=== PATIENT | male | born 1975 | race Caucasian/White ===

== ENCOUNTER 2016-12-01 08:49 | Day surgery (SDC) | payer OTHER ==
[2016-12-01] MEDS ORDERED: IV START KIT ONE (09:58)
[2016-12-01] MEDS ORDERED: LACTATED RINGERS 1,000 ML ONE (09:58)
[2016-12-01] MEDS ORDERED: MIDAZOLAM HCL 5 MG/5 ML VIAL ONE (11:21)
[2016-12-01] MEDS ORDERED: LIDOCAINE Viscous 2% 15 ML UDCUP ONE (11:22)
[2016-12-01] MEDS ORDERED: FENTANYL 250 MCG/5 ML AMP ONE (11:22)
[2016-12-01] MEDS ORDERED: MIDAZOLAM HCL 1 MG/ML 2ML VIAL ONE (11:53)
[2016-12-01 16:52] LABS: HELICOBACTER PYLORII DETECTION NEGATIVE (NEGATIVE)
--- NOTE | 2016-12-03 14:40 | SURGPATH ---
[facility] [address] [place] [address] Patient Name: REBEKA MANZO MR#: [id number] : 1975 Gender: M Specimen #: [id number] Collected: 12/01/2016 Received: 12/02/2016 Reported: 12/03/2016 Submitting Phys: CLIFTON VEGA Copy To Phys: YVONNE GORMAN [facility] Clinical History / Pre-Operative Diagnosis: Diarrhea; periumbilical pain; tenesmus; rule out ileitis and colitis Specimen Source / Surgical Procedure Performed: #1-duodenal biopsy; #2-antral biopsy; #3-terminal ileum biopsy; #4-cecal biopsy; #5-sigmoid at 30 cm Interpretation: 1. DUODENUM, BIOPSY: - SMALL BOWEL MUCOSA WITH NO DIAGNOSTIC ABNORMALITY 2. STOMACH, ANTRUM, BIOPSY: - GASTRIC MUCOSA WITH NO DIAGNOSTIC ABNORMALITY 3. TERMINAL ILEUM, BIOPSY: - SMALL BOWEL MUCOSA WITH NO DIAGNOSTIC ABNORMALITY 4. CECUM, BIOPSY: - COLONIC MUCOSA WITH NO DIAGNOSTIC ABNORMALITY 5. SIGMOID COLON, 30 CM, BIOPSY: - COLONIC MUCOSA WITH NO DIAGNOSTIC ABNORMALITY Electronically Signed Out Mariel Park M.D. Gross Description: #1 The specimen is received in a formalin filled container labeled with the patient's name and "duodenal biopsy". Three bar[place] biopsies are 0.2, 0.3 and 0.4 cm. Totally embedded in cassette #1. #2 The specimen is received in a formalin filled container labeled with the patient's name and "antral biopsy". Two barahona biopsies are 0.3 and 0.4 cm. Totally embedded in cassette #2. #3 The specimen is received in a formalin filled container labeled with the patient's name and "terminal ileum biopsy". A single barahona biopsy is 0.4 cm. Totally embedded in cassette #3. #4 The specimen is received in a formalin filled container labeled with the patient's name and "cecal biopsy". Two barahona biopsies are 0.4 and 0.5 cm. Totally embedded in cassette #4. #5 The specimen is received in a formalin filled container labeled with the patient's name and "sigmoid at 30 cm". Two victor biopsies are 0.4 and 0.5 cm. Totally embedded in cassette #5. Xavier Clemens PSonyASony Microscopic Description: 1. Sections show fragments of small bowel mucosa with long and well preserved villous processes. There is no significant inflammation and lymphocytes are not increased within the epithelium. No infectious organisms are identified and there is no dysplasia. 2. Sections show fragments of gastric mucosa. There is normal mucosal architecture and no significant inflammation. No Helicobacter organisms are identified and there is no intestinal metaplasia or dysplasia. 3. Sections show fragments of small bowel mucosa with long and well preserved villous processes. There is no significant inflammation and lymphocytes are not increased within the epithelium. No infectious organisms are identified and there is no dysplasia. 4. Sections show fragments of colonic mucosa with normal mucosal architecture. There is no significant inflammation or signs of microscopic colitis. No infectious organisms are identified and there is no dysplasia. 5. Sections show fragments of colonic mucosa with normal mucosal architecture. There is no significant inflammation or signs of microscopic colitis. No infectious organisms are identified and there is no dysplasia. 1: 81016 2: 75005 3: 91963 4: 25950 5: 26675 R19.7
== END 2016-12-01 12:40 | disposition home or self-care (01) ==
LOC: SDC 08:49
PROVIDERS: ATTEND Internal Medicine Gastroenterology
PROC: 0DB98ZX Excision of Duodenum, Via Natural or Artificial Opening Endoscopic, Diagnostic (ICD-10-PCS; principal; 2016-12-01)
PROC: 0DB68ZX Excision of Stomach, Via Natural or Artificial Opening Endoscopic, Diagnostic (ICD-10-PCS; 2016-12-01)
PROC: 0DBN8ZX Excision of Sigmoid Colon, Via Natural or Artificial Opening Endoscopic, Diagnostic (ICD-10-PCS; 2016-12-01)
PROC: 0DBH8ZX Excision of Cecum, Via Natural or Artificial Opening Endoscopic, Diagnostic (ICD-10-PCS; 2016-12-01)
PROC: 0DBB8ZX Excision of Ileum, Via Natural or Artificial Opening Endoscopic, Diagnostic (ICD-10-PCS; 2016-12-01)
DX: R19.5 Other fecal abnormalities (principal); K59.8 Other specified functional intestinal disorders; K29.70 Gastritis, unspecified, without bleeding; K29.80 Duodenitis without bleeding
CPT/HCPCS: 87081; 43239; 45380; J3010; J2250 ×2; A9270; J7120